=== PATIENT | female | born 1990 | race Caucasian/White ===

== ENCOUNTER 2017-01-16 14:35 | Emergency (ER) | payer OTHER ==
[~2017-01-16] VITALS: Ht 154.9 cm; Wt 94.4 kg
[2017-01-16 17:06] VITALS: BP 131/92
== END 2017-01-16 18:09 | disposition home or self-care (01) ==
LOC: ED 14:35
DX: L02.232 Carbuncle of back [any part, except buttock and flank] (principal)
CPT/HCPCS: 90715

== ENCOUNTER 2017-01-18 09:02 | Emergency (ER) | payer OTHER ==
[~2017-01-18] VITALS: Ht 154.9 cm; Wt 94.5 kg
[2017-01-18 11:56] VITALS: BP 118/53
== END 2017-01-18 11:56 | disposition home or self-care (01) ==
LOC: ED 09:02
DX: L02.212 Cutaneous abscess of back [any part, except buttock and flank] (principal); R03.0 Elevated blood-pressure reading, without diagnosis of hypertension; Z79.899 Other long term (current) drug therapy
CPT/HCPCS: J1885; J2001

== ENCOUNTER 2017-01-20 13:52 | Emergency (ER) | payer OTHER ==
[~2017-01-20] VITALS: Ht 154.9 cm; Wt 95.3 kg
[2017-01-20 15:09] VITALS: BP 136/92
== END 2017-01-20 15:09 | disposition home or self-care (01) ==
LOC: ED 13:52
DX: Z48.00 Encounter for change or removal of nonsurgical wound dressing (principal)

== ENCOUNTER 2017-04-12 23:19 | Emergency (ER) | payer OTHER ==
[2017-04-13 01:20] VITALS: BP 136/92
== END 2017-04-13 01:20 | disposition home or self-care (01) ==
LOC: ED 23:19
DX: S90.821A Blister (nonthermal), right foot, initial encounter (principal); X58.XXXA Exposure to other specified factors, initial encounter; Y93.89 Activity, other specified; Y92.89 Other specified places as the place of occurrence of the external cause; Y99.8 Other external cause status

== ENCOUNTER 2017-07-30 22:42 | Emergency (ER) | payer OTHER ==
[2017-07-30 23:56] LABS: UA SPECIFIC GRAVITY 1.015 (1.005-1.035); microscopic required? YES; urine erythrocyte NEGATIVE (NEGATIVE)
[2017-07-31 00:30] VITALS: BP 136/89
== END 2017-07-31 00:30 | disposition home or self-care (01) ==
LOC: ED 22:42
PROVIDERS: Emergency Medicine
DX: J20.9 Acute bronchitis, unspecified (principal); N39.0 Urinary tract infection, site not specified

== ENCOUNTER 2018-01-15 11:09 | Emergency (ER) | payer OTHER ==
[~2018-01-15] VITALS: Ht 154.9 cm; Wt 112.9 kg
[2018-01-15 11:28] VITALS: Ht 154.9 cm; Wt 112.9 kg
[2018-01-15 13:05] VITALS: BP 145/97
== END 2018-01-15 13:05 | disposition home or self-care (01) ==
LOC: ED 11:09
DX: J06.9 Acute upper respiratory infection, unspecified (principal)

== ENCOUNTER 2018-03-12 12:55 | Emergency (ER) | payer OTHER ==
[~2018-03-12] VITALS: Ht 154.9 cm; Wt 115.3 kg
[2018-03-12 13:02] VITALS: Ht 154.9 cm; Wt 115.3 kg
[2018-03-12 15:00] LABS: BASOPHIL % 0.4 % (0-2); CALCIUM 8.5 mg/dL (8.5-10.1); CHLORIDE SERUM 102 mmol/L (98-107); CREATININE SERUM 0.7 mg/dL (0.6-1.0); GFR1 > 60 mL/min; GLUCOSE SERUM 92 mg/dL (74-106); PLATELET COUNT 307 x10^3mcL (130-400); POTASSIUM SERUM 3.8 mmol/L (3.5-5.1); RED CELL DISTRIBUTION WIDTH 12.8 % (11.5-14.5); SODIUM SERUM 141 mmol/L (136-145)
[2018-03-12 15:54] VITALS: BP 148/97
== END 2018-03-12 15:54 | disposition home or self-care (01) ==
LOC: ED 12:55
PROVIDERS: Emergency Medicine
DX: R51 Headache (principal); I10 Essential (primary) hypertension; R60.9 Edema, unspecified
CPT/HCPCS: 36415

== ENCOUNTER 2018-04-10 14:39 | Emergency (ER) | payer OTHER ==
[~2018-04-10] VITALS: Ht 154.9 cm; Wt 113.4 kg
[2018-04-10 14:43] VITALS: Ht 154.9 cm; Wt 113.4 kg
[2018-04-10 15:47] LABS: BASOPHIL % 0.2 % (0-2); PLATELET COUNT 281 x10^3mcL (130-400); RED CELL DISTRIBUTION WIDTH 12.2 % (11.5-14.5)
[2018-04-10 15:56] LABS: CALCIUM 8.2 mg/dL (8.5-10.1); CARBON DIOXIDE 25.5 mmol/L (21-32); CREATININE SERUM 1.6 mg/dL (0.6-1.0); POTASSIUM SERUM 4.7 mmol/L (3.5-5.1)
[2018-04-10 16:01] LABS: ALBUMIN 2.9 g/dL (3.4-5.0); BILIRUBIN TOTAL 0.46 mg/dL (0.20-1.00); TOTAL PROTEIN, SERUM 7.2 g/dL (6.4-8.2)
[2018-04-10 16:48] VITALS: BP 118/86
== END 2018-04-10 16:48 | disposition home or self-care (01) ==
LOC: ED 14:39
PROVIDERS: Emergency Medicine
DX: R10.11 Right upper quadrant pain (principal); R11.2 Nausea with vomiting, unspecified; R19.7 Diarrhea, unspecified; E78.00 Pure hypercholesterolemia, unspecified
CPT/HCPCS: J2550; J3010

== ENCOUNTER 2018-04-18 09:20 | Emergency (ER) | payer OTHER ==
[~2018-04-18] VITALS: Ht 154.9 cm; Wt 125.2 kg
[2018-04-18 09:26] VITALS: Ht 154.9 cm; Wt 125.2 kg
[2018-04-18 10:57] LABS: BASOPHIL % 0.3 % (0-2); PLATELET COUNT 291 x10^3mcL (130-400); RED CELL DISTRIBUTION WIDTH 12.4 % (11.5-14.5)
[2018-04-18 11:00] LABS: CALCIUM 8.3 mg/dL (8.5-10.1); CARBON DIOXIDE 28.2 mmol/L (21-32); CHLORIDE SERUM 106 mmol/L (98-107); GFR1 > 60 mL/min; GLUCOSE SERUM 96 mg/dL (74-106); SODIUM SERUM 141 mmol/L (136-145)
[2018-04-18 12:22] VITALS: BP 130/64
== END 2018-04-18 12:22 | disposition home or self-care (01) ==
LOC: ED 09:20
PROVIDERS: Emergency Medicine
DX: J18.9 Pneumonia, unspecified organism (principal); E78.00 Pure hypercholesterolemia, unspecified
CPT/HCPCS: 85378; J0696; J3490; J7030; J7613; J7644; Q0092

== ENCOUNTER 2018-11-23 12:16 | Emergency (ER) | payer SELFPAY ==
[~2018-11-23] VITALS: Ht 154.9 cm; Wt 121.1 kg
[2018-11-23 12:23] VITALS: Ht 154.9 cm; Wt 121.1 kg
[2018-11-23 13:58] VITALS: BP 132/85
== END 2018-11-23 13:58 | disposition home or self-care (01) ==
LOC: ED 12:16
DX: J06.9 Acute upper respiratory infection, unspecified (principal); E78.00 Pure hypercholesterolemia, unspecified